=== PATIENT | male | born 1990 | race American Indian/Alaskan Native ===

== ENCOUNTER 2020-07-27 10:17 | Emergency (ER) | payer SELFPAY ==
[2020-07-27 10:24] VITALS: BP 129/75
--- NOTE | 2020-07-27 12:13 | Emergency Department Report ---
Chief Complaint: Extremity Injury, Upper Stated Complaint: RT WRIST PAINS Time Seen by Provider: 07/27/20 11:11 - HPI History of Present Illness: Patient is a 29-year-old male who presents emergency room with complaints of chronic right wrist pain for multiple years. He denies any fall or injury. He has not seen a primary care physician or an orthopedic doctor. He denies any numbness. He states that he has pain with gripping things. 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 He states that he has been using a wrist brace for carpal tunnel. He states that the pain just continues. He denies any past medical history or allergies to medications. vss on exam: No bony tenderness to palpation of the right wrist, hand, digits, full range of motion of the right wrist, hand, digits with some discomfort upon flexion and extension, positive Phalen's test, neurovascularly intact, no erythema, no edema, no skin changes, no increased warmth Symptoms and examination appear most consistent with carpal tunnel syndrome Patient has had no traumatic injury There are no signs of gout or septic joint Discussed supportive care and symptomatic treatment with patient Patient will be referred to orthopedic doctor and primary care physician Discussed strict return precautions with patient Medical screening examination performed and there is no threat to life or limb at this time - Exam Vital Signs: Vital Signs 07/27/20 10:18 Temperature 98 F Pulse Rate 53 L Respiratory 18 Rate Blood Pressure 129/75 O2 Sat by Pulse 100 Oximetry MSE screening note: Focused history and physical exam performed. Due to findings the following was ordered: ED Disposition for MSE Clinical Impression: Right wrist pain Disposition: Z-07 MED SCREENING EXAM-LEFT Is pt being admited?: No Does the pt Need Aspirin: No Condition: Stable Instructions: Carpal Tunnel Syndrome (ED) Additional Instructions: May alternate Tylenol or ibuprofen as needed for discomfort. May use ice pack for 15 minutes at a time, rest. Please use a wrist wrap for carpal tunnel while you are working, may get this [id number] or at a drugstore. Follow-up with an orthopedic doctor. Follow-up with a primary care doctor. Return to emergency room for any new or worsening symptoms. Referrals: JAYLEN ARROYO MD [Staff Physician] - 2-3 Days (orthopedic ) [facility] [Provider Group] - 2-3 Days (orthopedic ) EDY MORAN MD [Staff Physician] - 2-3 Days [facility] [Provider Group] - 2-3 Days Forms: Work/School Release Form(ED) Time of Disposition: 12:13 Print Language: GUYANESE
== END 2020-07-27 12:35 | disposition left against medical advice (07) ==
LOC: ED 10:17
DX: M25.531 Pain in right wrist (principal); Z53.21 Procedure and treatment not carried out due to patient leaving prior to being seen by health care provider
CPT/HCPCS: 99282

== ENCOUNTER 2021-04-17 15:52 | Emergency (ER) | payer BC ==
[2021-04-17 17:49] VITALS: BP 138/89
--- NOTE | 2021-04-17 18:14 | Emergency Department Report ---
- General Chief Complaint: Upper Respiratory Infection Stated Complaint: CONGESTION, RUNNY NOSE Time Seen by Provider: 04/17/21 17:49 Source: patient Mode of arrival: Ambulatory Limitations: No Limitations - History of Present Illness Initial Comments: Patient is a 30-year-old male presents emergency room with complaints of URI symptoms that began yesterday. He has associated postnasal drip, dry cough, sneezing, wheezing, nasal congestion, chest congestion, rhinorrhea. He denies any fever, vomiting, diarrhea, shortness of breath, chest pain, sore throat, ear pain. No past medical history. No allergies to medications. Patient states he is a non-smoker. He endorses a sick contact at his job. He denies any recent travel. - Related Data Previous Rx's Medication Instructions Recorded Last Taken Type Albuterol Sulfate [Proventil Hfa] 1 puff IH TID PRN #1 hfa.aer.ad 04/17/21 Unknown Rx Azithromycin [Zithromax TAB] 250 mg PO QDAY 5 Days #6 tablet 04/17/21 Unknown Rx Prednisone [predniSONE 10 mg 10 mg PO .TAPER #1 tab.ds.pk 04/17/21 Unknown Rx (6-Day Pack, 21 Tabs)] guaiFENesin ER [Mucinex ER] 600 mg PO Q12H #14 tablet.er 04/17/21 Unknown Rx Allergies Allergy/AdvReac Type Severity Reaction Status Date / Time No Known Allergies Allergy Unverified 07/27/20 10:18 ED Review of Systems ROS: Stated complaint: CONGESTION, RUNNY NOSE Other details as noted in HPI Comment: All other systems reviewed and negative ED Past Medical Hx - Past Medical History Previous Medical History?: No - Surgical History Past Surgical History?: No - Social History Smoking Status: Never Smoker Substance Use Type: Marijuana - Medications Home Medications: Home Medications Medication Instructions Recorded Confirmed Last Taken Type Albuterol Sulfate [Proventil Hfa] 1 puff IH TID PRN #1 hfa.aer.ad 04/17/21 Unknown Rx Azithromycin [Zithromax TAB] 250 mg PO QDAY 5 Days #6 tablet 04/17/21 Unknown Rx Prednisone [predniSONE 10 mg 10 mg PO .TAPER #1 tab.ds.pk 04/17/21 Unknown Rx (6-Day Pack, 21 Tabs)] guaiFENesin ER [Mucinex ER] 600 mg PO Q12H #14 tablet.er 04/17/21 Unknown Rx ED Physical Exam - General Limitations: No Limitations General appearance: alert, in no apparent distress - Head Head exam: Present: atraumatic, normocephalic - Eye Eye exam: Present: normal appearance - ENT ENT exam: Present: normal orophraynx, mucous membranes moist, TM's normal bilaterally, normal external ear exam - Respiratory Respiratory exam: Present: wheezes (occassional mild wheeze bilaterally). Absent: respiratory distress, rales, rhonchi, stridor, accessory muscle use, decreased breath sounds, prolonged expiratory - Cardiovascular Cardiovascular Exam: Present: regular rate, normal rhythm, normal heart sounds. Absent: systolic murmur, diastolic murmur, rubs, gallop - Neurological Exam Neurological exam: Present: alert, oriented X3 - Psychiatric Psychiatric exam: Present: normal affect, normal mood - Skin Skin exam: Present: warm, dry, intact ED Course Vital Signs 04/17/21 16:32 Temperature 97.9 F Pulse Rate 73 Respiratory 20 Rate Blood Pressure 138/89 O2 Sat by Pulse 97 Oximetry ED Medical Decision Making - Medical Decision Making Patient is a 30-year-old male presents emergency room with complaints of URI symptoms that began yesterday. He has associated postnasal drip, dry cough, sneezing, wheezing, nasal congestion, chest congestion, rhinorrhea. He denies any fever, vomiting, diarrhea, shortness of breath, chest pain, sore throat, ear pain. No past medical history. No allergies to medications. Patient states he is a non-smoker. He endorses a sick contact at his job. He denies any recent travel. Vitals are normal. On exam:occassional mild wheeze bilaterally, no respiratory distress, no accessory muscle use, no rhonchi, no rales. Symptoms and examination appear most consistent with acute bronchitis. Patient given prescription for medications. Advised patient Please take medication as prescribed. Increase your fluid intake. Follow-up with your primary care doctor for reexamination. Recommend for you to get outpatient COVID-19 testing and quarantine as necessary. Return to emergency room immediately for any new or worsening symptoms. Critical care attestation.: If time is entered above; I have spent that time in minutes in the direct care of this critically ill patient, excluding procedure time. ED Disposition Clinical Impression: Acute bronchitis Qualifiers: Bronchitis organism: unspecified organism Qualified Code(s): J20.9 - Acute bronchitis, unspecified Disposition: DC-01 TO HOME OR SELFCARE Is pt being admited?: No Does the pt Need Aspirin: No Condition: Stable Instructions: Acute Bronchitis, Adult, Acute Bronchitis (ED) Additional Instructions: Please take medication as prescribed. Increase your fluid intake. Follow-up with your primary care doctor for reexamination. Recommend for you to get outpatient COVID-19 testing and quarantine as necessary. Return to emergency room immediately for any new or worsening symptoms. Prescriptions: guaiFENesin ER [Mucinex ER] 600 mg PO Q12H #14 tablet.er Prednisone [predniSONE 10 mg (6-Day Pack, 21 Tabs)] 10 mg PO .TAPER #1 tab.ds.pk Albuterol Sulfate [Proventil Hfa] 1 puff IH TID PRN #1 hfa.aer.ad PRN Reason: shortness of breath/wheezing Azithromycin [Zithromax TAB] 250 mg PO QDAY 5 Days #6 tablet Referrals: EDY MORAN MD [Staff Physician] - 3-5 Days [facility] [Provider Group] - 3-5 Days Forms: Work/School Release Form(ED) Time of Disposition: 18:12 Print Language: BRUNEIAN
== END 2021-04-17 18:54 | disposition home or self-care (01) ==
LOC: ED 15:52
DX: J20.9 Acute bronchitis, unspecified (principal); F12.90 Cannabis use, unspecified, uncomplicated; Z98.890 Other specified postprocedural states; Z79.899 Other long term (current) drug therapy
CPT/HCPCS: 99281

== ENCOUNTER 2021-05-08 14:33 | Emergency (ER) | payer BC ==
[2021-05-08 15:32] VITALS: BP 151/89
--- NOTE | 2021-05-08 16:28 | XRay Report ---
LEFT FOOT 3 VIEWS INDICATION / CLINICAL INFORMATION: Left foot pain/injury after fall. COMPARISON: None available. FINDINGS: BONES and JOINT(S): No acute fracture or subluxation. No significant arthritis. SOFT TISSUES: No significant abnormality. ADDITIONAL FINDINGS: None. IMPRESSION: 1. No acute findings. Signer Name: Jovani Smith MD Signed: 05/08/2021 4:24 PM Workstation Name: [id number]
[2021-05-08] MEDS ORDERED: dexAMETHasone 4 MG/ML VIAL IM STA (17:58)
[2021-05-08] MEDS ORDERED: KETOROLAC 60 MG/2 ML INJ IM ONE (17:58)
[2021-05-08] MEDS ORDERED: HYDROcodone/ACETAMINOPHEN 5-325 MG TAB PO ONE (17:58)
--- NOTE | 2021-05-08 18:02 | Emergency Department Report ---
ED General Adult HPI - General Chief complaint: Extremity Injury, Lower Stated complaint: LT FEET SWOLLEN Time Seen by Provider: 05/08/21 16:46 Source: patient Mode of arrival: Ambulatory Limitations: No Limitations - History of Present Illness Initial comments: 30-year-old -Vin[place] male patient presents with complaints of left foot pain x2 days. Patient states he believes he hurt his foot 4 days ago when he twisted it on the stairs, however the pain did not start until 2 days later upon waking. He rates his current pain as a 10/10 in severity and states it has not improved with Goody's powders. He reports some swelling and states the pain is significant just to light touch. He admits to a history of gout, however has only had 1 flare that was about 3 years ago. No numbness/tingling or difficulty moving his foot per patient. - Related Data Previous Rx's Medication Instructions Recorded Last Taken Type Albuterol Sulfate [Proventil Hfa] 1 puff IH TID PRN #1 hfa.aer.ad 04/17/21 Unknown Rx Azithromycin [Zithromax TAB] 250 mg PO QDAY 5 Days #6 tablet 04/17/21 Unknown Rx guaiFENesin ER [Mucinex ER] 600 mg PO Q12H #14 tablet.er 04/17/21 Unknown Rx Indomethacin 50 mg PO Q8H PRN #12 capsule 05/08/21 Unknown Rx Prednisone [predniSONE 10 mg 10 mg PO .TAPER #1 tab.ds.pk 05/08/21 Unknown Rx (6-Day Pack, 21 Tabs)] Allergies Allergy/AdvReac Type Severity Reaction Status Date / Time No Known Allergies Allergy Unverified 07/27/20 10:18 ED Review of Systems ROS: Stated complaint: LT FEET SWOLLEN Other details as noted in HPI Constitutional: denies: chills, fever, malaise Musculoskeletal: joint swelling, arthralgia Skin: denies: change in color ED Past Medical Hx - Past Medical History Previous Medical History?: No - Surgical History Past Surgical History?: No - Social History Smoking Status: Never Smoker - Medications Home Medications: Home Medications Medication Instructions Recorded Confirmed Last Taken Type Albuterol Sulfate [Proventil Hfa] 1 puff IH TID PRN #1 hfa.aer.ad 04/17/21 Unknown Rx Azithromycin [Zithromax TAB] 250 mg PO QDAY 5 Days #6 tablet 04/17/21 Unknown Rx guaiFENesin ER [Mucinex ER] 600 mg PO Q12H #14 tablet.er 04/17/21 Unknown Rx Indomethacin 50 mg PO Q8H PRN #12 capsule 05/08/21 Unknown Rx Prednisone [predniSONE 10 mg 10 mg PO .TAPER #1 tab.ds.pk 05/08/21 Unknown Rx (6-Day Pack, 21 Tabs)] ED Physical Exam - General Limitations: No Limitations General appearance: alert, in no apparent distress - Head Head exam: Present: atraumatic - Eye Eye exam: Present: normal appearance - Respiratory Respiratory exam: Absent: respiratory distress - Cardiovascular Cardiovascular Exam: Present: regular rate - Extremities Exam Extremities exam: Present: other (Tenderness to palpation noted to the left first MTP joint with mild redness, warmth, and mild swelling normal ROM and sensation and pedal pulse noted;) ED Course Vital Signs 05/08/21 15:28 Temperature 98.4 F Pulse Rate 65 Respiratory 18 Rate Blood Pressure 151/89 O2 Sat by Pulse 99 Oximetry ED Medical Decision Making - Radiology Data Radiology results: report reviewed LEFT FOOT 3 VIEWS INDICATION / CLINICAL INFORMATION: Left foot pain/injury after fall. COMPARISON: None available. FINDINGS: BONES and JOINT(S): No acute fracture or subluxation. No significant arthritis. SOFT TISSUES: No significant abnormality. ADDITIONAL FINDINGS: None. IMPRESSION: 1. No acute findings. - Medical Decision Making 30-year-old -[place]in[place] male patient presents with complaints of left foot pain x2 days. Patient states he believes he hurt his foot 4 days ago when he twisted it on the stairs, however the pain did not start until 2 days later upon waking. He rates his current pain as a 10/10 in severity and states it has not improved with Goody's powders. He reports some swelling and states the pain is significant just to light touch. He admits to a history of gout, however has only had 1 flare that was about 3 years ago. No numbness/tingling or difficulty moving his foot per patient. X-ray of the foot is negative for any acute bony abnormalities. Physical and history are consistent with gout. Patient given Toradol and Decadron and will discharge home with similar medications. Recommend follow-up with primary care in 3 days. He is well-appearing, his vitals are normal, he is stable for discharge home. Strict return precautions were discussed in detail with patient who verbalizes understanding. Critical care attestation.: If time is entered above; I have spent that time in minutes in the direct care of this critically ill patient, excluding procedure time. ED Disposition Clinical Impression: Gout flare Disposition: - TO HOME OR SELFCARE Is pt being admited?: No Condition: Stable Prescriptions: Indomethacin 50 mg PO Q8H PRN #12 capsule PRN Reason: Pain , Severe (7-10) Prednisone [predniSONE 10 mg (6-Day Pack, 21 Tabs)] 10 mg PO .TAPER #1 tab.ds.pk Referrals: [facility] [Provider Group] - 3-5 Days Forms: Work/School Release Form(ED)
== END 2021-05-08 19:20 | disposition home or self-care (01) ==
LOC: ED 14:33
DX: M10.9 Gout, unspecified (principal); Z79.899 Other long term (current) drug therapy
CPT/HCPCS: 73630; 96372; 99283; J1100; J1885